=== PATIENT | male | born 1965 | race Two or more races ===

== ENCOUNTER 2019-10-06 18:12 | Emergency (ER) | payer OTHER ==
[~2019-10-06] VITALS: Ht 180.3 cm; Wt 86.2 kg
[2019-10-06] MEDS ORDERED: EDARBI80 MG (18:32)
== END 2019-10-06 21:55 | disposition home or self-care (01) ==
LOC: ER 18:12
DX: R10.33 Periumbilical pain (principal); K63.89 Other specified diseases of intestine